=== PATIENT | female | born 1985 | race Caucasian/White ===

== ENCOUNTER 2021-06-05 11:17 | Inpatient (IN) ==
[2021-06-05] MEDS ORDERED: SODIUM CHLORIDE 0.9% 1,000 ML IV STA (11:59)
[2021-06-05] MEDS ORDERED: INSULIN REGULAR 100 UNIT/ML IV STA (12:00)
[2021-06-05] MEDS ORDERED: ONDANSETRON 4 MG/2 ML VIAL ONE (12:32)
[2021-06-05] MEDS ORDERED: ONDANSETRON 4 MG/2 ML VIAL IV STA (12:42)
[2021-06-05 12:54] LABS: Amorphous Crystals,Urine Occasional /HPF (Few); Bacteria,Urine Occasional /HPF (Few); Bilirubin,Urine Negative (Negative); Blood, Urine Small mg/dL (Negative); Glucose,Urine (UA) >=500 mg/dL (Negative); Granular Casts,Urine 14 /LPF (0-1); Ketones,Urine 80 mg/dL (Negative); Mucus,Urine Occasional /LPF (Occasional); Nitrite,Urine Negative (Negative); Protein,Urine 100 MG/DL; Squamous Epithelial Cell,Urine Occasional /HPF (0-10); Urine Appearance CLEAR (Clear); Urine Color Yellow (Yellow); Urine Specific Gravity 1.027 (1.001-1.035); Urine Urobilinogen < 2.0 EU/DL (0.2-1.0)
[2021-06-05 13:01] LABS: Basophils # 0.1 10*3/uL (0.0-0.2); Basophils % 0.4 % (0.0-0.8); Hematocrit 50.2 VOL% (35.7-47.0); Immature Granulocytes % 3.5 %; Immature Granulocytes Absolute 0.93 #; Lymphocytes # 2.2 10*3/uL (1.4-4.0); Lymphocytes % 8.4 % (21.3-54.2); Mean Corpuscular HGB Conc 29.9 GM/DL (32-36); Mean Corpuscular Volume 86.9 FL (87-102); Mean Platelet Volume 11.2 FL (9.6-12.0); Monocytes % 10.3 % (1.7-12.7); NRBC # 0.03 10*3/uL; Neutrophils % 77.4 % (38.7-73.9); Platelet Count 491 T/CUMM (130-400); Red Blood Count 5.78 MC/CUMM (3.8-5.5); Red Cell Distribution Width 14.9 % (9.3-17.3); White Blood Count 26.3 T/CUMM (4-12)
[2021-06-05 13:07] LABS: Band Neutrophils 8 % (0-10); Lymphocytes 12 % (20-55); Metamyelocytes 1 %; Platelet Estimate Normal; Segmented Neutrophils 68 % (50-85); Total Cells Counted 100
[2021-06-05 13:08] LABS: Anisocytosis 1+; Atypical Lymphocytes Few; Spherocytes Few
[2021-06-05 13:09] LABS: Macrocytosis Slight
[2021-06-05 13:19] LABS: Alanine Aminotransferase 13 U/L (13-56); Albumin 3.9 G/DL (3.4-5.0); Alkaline Phosphatase 65 U/L (45-117); Aspartate Amino Transferase 17 U/L (0-37); Blood Urea Nitrogen 30 MG/DL (7-18); Calcium 9.4 MG/DL (8.5-10.1); Carbon Dioxide 6 MMOL/L (21-32); Estimated Glom Filtration Rate 73 ML/MIN; Ferritin 121.9 ng/ml (8-252); Glucose 332 MG/DL (74-106); Osmolality,Calculated 288.1 MOS/KG (273-304); Potassium 4.7 MMOL/L (3.5-5.1); Sodium 135 MMOL/L (136-145); Total Protein 8.9 G/DL (6.4-8.2)
[2021-06-05] MEDS ORDERED: DEXTROSE 50% 25 GM/50 ML VIAL IV PRN ×2 (13:40)
[2021-06-05] MEDS ORDERED: SODIUM PHOSPHATE INJ 19.7 MMOL in SODIUM CHLORIDE 0.9% 250 ML IV PRN (13:40)
[2021-06-05] MEDS ORDERED: AZITHROMYCIN INJ 500 MG in SODIUM CHLORIDE 0.9% 250 ML IV ONE (13:40)
[2021-06-05] MEDS ORDERED: SODIUM CHLORIDE 0.9% 1,000 ML IV ONE (13:40)
[2021-06-05] MEDS ORDERED: INSULIN REGULAR 100 UNIT/ML IV ONE (13:40)
[2021-06-05] MEDS ORDERED: MAGNESIUM SULF RIDER 2 GM/50 ML PREMIX IV PRN (13:40)
[2021-06-05] MEDS ORDERED: SODIUM BICARB INJ 100 MEQ in STERILE WATER INJ 400 ML IV PRN (13:40)
[2021-06-05] MEDS ORDERED: MAGNESIUM SULF RIDER 4 GM/100 ML PREMIX IV PRN (13:40)
[2021-06-05 13:46] LABS: ABG Base Excess -28.6 MMOL/L (-2.5-2.5); ABG HCO3 6.1 MMOL/L (20-26); ABG Oxygen Saturation 94.5 % (95-100)
[2021-06-05 13:51] LABS: ABG TCO2 10.1 MMOL/L (23-27)
[2021-06-05 13:53] LABS: ABG PCO2 10.1 MM HG (35-48)
[2021-06-05] MEDS ORDERED: ENOXAPARIN 40 MG/0.4 ML SYRINGE SUBCUT SCH (14:00)
[2021-06-05 14:38] LABS: Bilirubin,Urine Negative (Negative); Blood, Urine Small mg/dL (Negative); Glucose,Urine (UA) >=500 mg/dL (Negative); Granular Casts,Urine 6 /LPF (0-1); Ketones,Urine 80 mg/dL (Negative); Mucus,Urine Occasional /LPF (Occasional); Nitrite,Urine Negative (Negative); Protein,Urine 100 MG/DL; Squamous Epithelial Cell,Urine Occasional /HPF (0-10); Urine Appearance CLEAR (Clear); Urine Color Straw (Yellow); Urine Specific Gravity 1.025 (1.001-1.035); Urine Urobilinogen < 2.0 EU/DL (0.2-1.0)
[2021-06-05 14:49] LABS: PT Patient Result 10.8 SECS (10.5-12.0)
[2021-06-05] MEDS: SODIUM CHLORIDE 0.9% 1,000 ML IV SCH ×2 (15:00→17:20)
[2021-06-05] MEDS: INSULIN REGULAR DRIP 100 ML IV SCH (15:35)
[2021-06-05 16:28] LABS: Potassium 4.9 MMOL/L (3.5-5.1)
[2021-06-05 16:41] VITALS: BP 131/96
[2021-06-05] MEDS: DEXTROSE 5% 1,000 ML IV SCH ×3 (17:25→21:30)
[2021-06-05] MEDS: PANTOPRAZOLE 40 MG VIAL IV SCH (17:39)
[2021-06-05] MEDS ORDERED: SODIUM CHLORIDE 0.9% 1,000 ML IV SCH (19:00)
[2021-06-05 19:38] LABS: Calcium 8.5 MG/DL (8.5-10.1); Osmolality,Calculated 286.5 MOS/KG (273-304); Potassium 5.7 MMOL/L (3.5-5.1)
[2021-06-05] MEDS: ONDANSETRON 4 MG/2 ML VIAL IV PRN (20:37)
[2021-06-05] MEDS: ASCORBIC ACID 500 MG TABLET PO SCH (20:37)
[2021-06-05 21:54] LABS: Potassium 5.1 MMOL/L (3.5-5.1)
[2021-06-05 21:57] LABS: Calcium 7.7 MG/DL (8.5-10.1)
[2021-06-05 21:58] LABS: Osmolality,Calculated 282.5 MOS/KG (273-304)
[2021-06-05] MEDS: DEXTROSE 5% NACL 0.45% 1,000 ML IV SCH (22:17)
[2021-06-05 22:37] LABS: ABG Base Excess -23.2 MMOL/L (-2.5-2.5); ABG HCO3 8.3 MMOL/L (20-26); ABG Oxygen Saturation 96.2 % (95-100); ABG PO2 91.5 MM HG (80-95); ABG TCO2 4.1 MMOL/L (23-27); Allen Test Positive; Pt O2 Delivery Device Room Air
[2021-06-05 22:40] LABS: ABG PH 7.181 (7.35-7.45)
[2021-06-06] MEDS: DEXTROSE 5% NACL 0.45% 1,000 ML IV SCH ×4 (02:07→22:56)
[2021-06-06 03:49] LABS: Hematocrit 38.9 VOL% (35.7-47.0); Immature Granulocytes % 1.3 %; Lymphocytes # 1.5 10*3/uL (1.4-4.0); Lymphocytes % 18.7 % (21.3-54.2); Mean Corpuscular HGB Conc 30.3 GM/DL (32-36); Mean Corpuscular Volume 84.4 FL (87-102); Mean Platelet Volume 10.1 FL (9.6-12.0); Monocytes % 7.6 % (1.7-12.7); Neutrophils % 72.4 % (38.7-73.9); Red Cell Distribution Width 14.9 % (9.3-17.3)
[2021-06-06 03:52] LABS: Red Blood Count 4.61 MC/CUMM (3.8-5.5); White Blood Count 7.8 T/CUMM (4-12)
[2021-06-06 03:53] LABS: Hemoglobin 11.8 GM/DL (12.0-16.0); Platelet Count 246 T/CUMM (130-400)
[2021-06-06 04:00] LABS: Calcium 7.9 MG/DL (8.5-10.1); Osmolality,Calculated 277.7 MOS/KG (273-304); Potassium 3.6 MMOL/L (3.5-5.1)
[2021-06-06 04:01] LABS: Calcium 7.7 MG/DL (8.5-10.1); Osmolality,Calculated 281.4 MOS/KG (273-304); Potassium 3.7 MMOL/L (3.5-5.1)
[2021-06-06 04:04] LABS: Albumin 2.7 G/DL (3.4-5.0); Bilirubin,Total 0.7 MG/DL (0.20-1.00); Calcium 7.9 MG/DL (8.5-10.1); Osmolality,Calculated 279.5 MOS/KG (273-304); Potassium 3.9 MMOL/L (3.5-5.1); Total Protein 6.2 G/DL (6.4-8.2)
[2021-06-06] MEDS: ENOXAPARIN 80 MG/0.8 ML SYRINGE SUBCUT SCH ×2 (04:10→15:42)
[2021-06-06] MEDS: POTASSIUM CHLORIDE RIDER 10 MEQ/100 ML PREMIX IV PRN ×8 (04:10→23:22)
[2021-06-06 05:35] LABS: Sedimentation Rate-Westergren 50 MM/HR (0-20)
[2021-06-06] MEDS: ONDANSETRON 4 MG/2 ML VIAL IV PRN ×4 (06:07→19:15)
[2021-06-06] MEDS: SODIUM CHLORIDE 0.45% 1,000 ML IV SCH ×3 (06:08→22:57)
[2021-06-06] MEDS: INSULIN REGULAR DRIP 100 ML IV SCH ×2 (09:20→15:28)
[2021-06-06] MEDS ORDERED: POTASSIUM PHOSPHATE 30 MMOL in SODIUM CHLORIDE 0.9% 250 ML IV ONE (10:00)
[2021-06-06 10:12] LABS: Osmolality,Calculated 280.3 MOS/KG (273-304); Potassium 3.2 MMOL/L (3.5-5.1)
[2021-06-06] MEDS: CHOLECALCIFEROL 1,000 UNIT TABLET PO SCH (10:44)
[2021-06-06] MEDS: ASCORBIC ACID 500 MG TABLET PO SCH ×2 (10:44→20:26)
[2021-06-06] MEDS ORDERED: POTASSIUM CHLORIDE RIDER 20 MEQ/100 ML PREMIX IV PRN (11:06)
[2021-06-06 14:28] LABS: Calcium 7.7 MG/DL (8.5-10.1); Osmolality,Calculated 279.3 MOS/KG (273-304); Potassium 3.9 MMOL/L (3.5-5.1)
[2021-06-06] MEDS: PANTOPRAZOLE 40 MG VIAL IV SCH (15:05)
[2021-06-06 17:49] LABS: Calcium 7.8 MG/DL (8.5-10.1); Osmolality,Calculated 274.7 MOS/KG (273-304); Potassium 4.4 MMOL/L (3.5-5.1)
[2021-06-06 21:41] LABS: Calcium 7.7 MG/DL (8.5-10.1); Osmolality,Calculated 279.4 MOS/KG (273-304); Potassium 3.4 MMOL/L (3.5-5.1)
[2021-06-07] MEDS: POTASSIUM CHLORIDE RIDER 10 MEQ/100 ML PREMIX IV PRN ×7 (00:38→17:35)
[2021-06-07] MEDS: ENOXAPARIN 80 MG/0.8 ML SYRINGE SUBCUT SCH ×2 (02:02→17:15)
[2021-06-07] MEDS: ONDANSETRON 4 MG/2 ML VIAL IV PRN ×2 (03:10→17:35)
[2021-06-07 03:27] LABS: Hematocrit 30.5 VOL% (35.7-47.0); Hemoglobin 9.6 GM/DL (12.0-16.0); Immature Granulocytes Absolute 0.04 #; Lymphocytes % 25.6 % (21.3-54.2); Mean Corpuscular HGB Conc 31.5 GM/DL (32-36); Mean Corpuscular Volume 80.7 FL (87-102); Mean Platelet Volume 10.7 FL (9.6-12.0); Neutrophils % 63.4 % (38.7-73.9); Platelet Count 185 T/CUMM (130-400); Red Blood Count 3.78 MC/CUMM (3.8-5.5)
[2021-06-07 03:45] LABS: Calcium 7.8 MG/DL (8.5-10.1); Osmolality,Calculated 277.4 MOS/KG (273-304); Potassium 3.5 MMOL/L (3.5-5.1)
[2021-06-07] MEDS ORDERED: DEXT 5% NACL 0.45% KCL 20 MEQ 20 MEQ/1,000 ML BAG IV SCH (05:00)
[2021-06-07] MEDS: DEXTROSE 5% NACL 0.45% 1,000 ML IV SCH ×2 (05:25→06:48)
[2021-06-07] MEDS: SODIUM CHLORIDE 0.45% 1,000 ML IV SCH ×4 (06:17→19:05)
[2021-06-07] MEDS: INSULIN REGULAR DRIP 100 ML IV SCH (07:14)
[2021-06-07] MEDS: CHOLECALCIFEROL 1,000 UNIT TABLET PO SCH (08:12)
[2021-06-07] MEDS: ASCORBIC ACID 500 MG TABLET PO SCH ×2 (08:12→20:28)
[2021-06-07] MEDS ORDERED: DEXTROSE 50% 25 GM/50 ML VIAL IV PRN (09:56)
[2021-06-07] MEDS ORDERED: GLUCAGON 1 MG VIAL IM PRN (09:56)
[2021-06-07] MEDS: INSULIN LISPRO 100 UNIT/ML SUBCUT SCH ×2 (11:33→15:39)
[2021-06-07 12:02] LABS: Calcium 7.9 MG/DL (8.5-10.1); Osmolality,Calculated 276.4 MOS/KG (273-304); Potassium 3.4 MMOL/L (3.5-5.1)
[2021-06-07] MEDS ORDERED: INSULIN GLARGINE 100 UNIT/ML SUBCUT ONE ×2 (14:08→21:00)
[2021-06-07 15:32] LABS: Osmolality,Calculated 277.4 MOS/KG (273-304); Potassium 3.5 MMOL/L (3.5-5.1)
[2021-06-07] MEDS: PANTOPRAZOLE 40 MG VIAL IV SCH (15:39)
[2021-06-07] MEDS ORDERED: INSULIN GLARGINE 100 UNIT/ML SUBCUT SCH (21:00)
[2021-06-08] MEDS: INSULIN LISPRO 100 UNIT/ML SUBCUT SCH ×3 (00:30→11:37)
[2021-06-08] MEDS: SODIUM CHLORIDE 0.45% 1,000 ML IV SCH ×2 (01:35→07:32)
[2021-06-08] MEDS: ENOXAPARIN 80 MG/0.8 ML SYRINGE SUBCUT SCH (03:20)
[2021-06-08 04:58] LABS: Eosinophils % 0.4 % (0.00-10.9); Hematocrit 29.5 VOL% (35.7-47.0); Hemoglobin 9.4 GM/DL (12.0-16.0); Immature Granulocytes % 1.6 %; Immature Granulocytes Absolute 0.04 #; Lymphocytes # 1.1 10*3/uL (1.4-4.0); Lymphocytes % 44.6 % (21.3-54.2); Mean Corpuscular HGB Conc 31.9 GM/DL (32-36); Mean Corpuscular Volume 80.2 FL (87-102); Mean Platelet Volume 10.5 FL (9.6-12.0); Monocytes % 11.2 % (1.7-12.7); Neutrophils % 42.2 % (38.7-73.9); Platelet Count 176 T/CUMM (130-400); Red Blood Count 3.68 MC/CUMM (3.8-5.5); Red Cell Distribution Width 14.6 % (9.3-17.3); White Blood Count 2.5 T/CUMM (4-12)
[2021-06-08 05:25] LABS: Calcium 7.9 MG/DL (8.5-10.1); Osmolality,Calculated 281.1 MOS/KG (273-304); Potassium 3.3 MMOL/L (3.5-5.1)
[2021-06-08 05:26] LABS: Hypochromasia 1+; Microcytosis 1+
[2021-06-08 05:27] LABS: Platelet Estimate Adequate
[2021-06-08 05:28] LABS: Ovalocytes Slight
[2021-06-08] MEDS: POTASSIUM CHLORIDE RIDER 10 MEQ/100 ML PREMIX IV PRN ×3 (05:43→10:25)
[2021-06-08] MEDS: ASCORBIC ACID 500 MG TABLET PO SCH (08:33)
[2021-06-08] MEDS: CHOLECALCIFEROL 1,000 UNIT TABLET PO SCH (08:33)
[2021-06-08] MEDS ORDERED: CITALOPRAM 20 MG TABLET PO SCH (09:00)
[2021-06-08] MEDS ORDERED: CETIRIZINE 10 MG PO SCH (09:00)
[2021-06-08] MEDS ORDERED: LEVOTHYROXINE 100 MCG TABLET PO SCH (09:00)
[2021-06-08] MEDS ORDERED: ZINC GLUCONATE 50 MG TABLET PO SCH (09:00)
[2021-06-08] MEDS: PANTOPRAZOLE 40 MG VIAL IV SCH (15:05)
== END 2021-06-08 14:55 | disposition home or self-care (01) | DRG 637 ==
LOC: EDUNIT# → N.ED 11:17 → N.EDINP 13:38 → SUATTDRO 13:38 → N.CC 15:01
PROVIDERS: ADMIT Family Medicine; ATTEND Internal Medicine